=== PATIENT | female | born 1930 | race Caucasian/White ===

== ENCOUNTER 2018-05-18 16:50 | Inpatient (IN) ==
[2018-05-18 17:30] LABS: Basophils # 0.1 10*3/uL (0.0-0.2); Basophils % 0.8 % (0.0-0.8); Eosinophils # 0.2 10*3/uL (0.0-0.87); Eosinophils % 2.3 % (0.00-10.9); Hemoglobin 15.3 GM/DL (12.0-16.0); Immature Granulocytes % 0.3 %; Immature Granulocytes Absolute 0.02 #; Lymphocytes # 2.3 10*3/uL (1.4-4.0); Lymphocytes % 28.5 % (21.3-54.2); Mean Corpuscular HGB Conc 33.3 GM/DL (32-36); Mean Corpuscular Hemoglobin 30 PG (27-34); Mean Corpuscular Volume 89.1 FL (87-102); Mean Platelet Volume 9.6 FL (9.6-12.0); Monocytes # 0.9 10*3/uL (0.11-0.8); Monocytes % 11.6 % (1.7-12.7); Neutrophils # 4.5 10*3/uL (1.4-7.4); Neutrophils % 56.5 % (38.7-73.9); Platelet Count 245 T/CUMM (130-400); Red Blood Count 5.16 MC/CUMM (3.8-5.5); Red Cell Distribution Width 12.9 % (9.3-17.3); White Blood Count 7.9 T/CUMM (4-12)
[2018-05-18 17:58] LABS: Alanine Aminotransferase 20 U/L (13-56); Albumin 3.7 G/DL (3.4-5.0); Alkaline Phosphatase 167 U/L (45-117); Aspartate Amino Transferase 15 U/L (0-37); Bilirubin,Total < 0.39 MG/DL (0.2-1.0); Blood Urea Nitrogen 24 MG/DL (7-18); Calcium 9.1 MG/DL (8.5-10.1); Glucose 133 MG/DL (74-106); Potassium 4.4 MMOL/L (3.5-5.1); Sodium 136 MMOL/L (136-145); Total Protein 8.1 G/DL (6.4-8.3); Troponin I 0.015 NG/ML (0.00-0.045)
[2018-05-18 18:02] LABS: Partial Thromboplastin Time 30.1 SECS (0-40)
[2018-05-18 18:28] LABS: Apearance,Urine Slightly Hazy (Clear); Bacteria,Urine Many /HPF (Few); Bilirubin,Urine Negative (Negative); Blood, Urine Moderate mg/dL (Negative); Glucose,Urine (UA) Negative (Negative); Granular Casts,Urine 6 /LPF (0-1); Hyaline Casts,Urine 4 /LPF (0-3); Ketones,Urine 5 mg/dL (Negative); Mucus,Urine Occasional /LPF (Occasional); Nitrite,Urine Negative (Negative); Protein,Urine Negative; RBC,Urine 33 /HPF (0-4); Squamous Epithelial Cell,Urine Few /HPF (0-10); Urine Color Yellow (Yellow); Urine Specific Gravity 1.018 (1.001-1.035); Urine Urobilinogen < 2.0 EU/DL (0.2-1.0); WBC,Urine 3 /HPF (0-6)
[2018-05-18] MEDS ORDERED: DILTIAZEM 50 MG/10 ML VIAL IV STA (19:05)
[2018-05-18] MEDS ORDERED: ONDANSETRON 4 MG/2 ML VIAL IV PRN (22:38)
[2018-05-18] MEDS ORDERED: ACETAMINOPHEN 325 MG TABLET PO PRN (22:38)
[2018-05-18] MEDS ORDERED: DIPHENOXYLATE/ATROPINE 2.5-0.025 MG TABLET PO PRN (22:41)
[2018-05-18] MEDS ORDERED: guaiFENesin 200 MG/10 ML UDCUP PO PRN (22:41)
[2018-05-18] MEDS ORDERED: BISMUTH SUBSALICYLATE 30 ML/524 MG 240 ML/BOTTLE PO PRN (22:41)
[2018-05-18] MEDS ORDERED: ONDANSETRON 4 MG TABLET PO PRN (22:41)
[2018-05-18] MEDS ORDERED: MAGNESIUM HYDROXIDE SUSP 30 ML UDCUP PO PRN (22:41)
[2018-05-18] MEDS ORDERED: LOPERAMIDE 2 MG CAPSULE PO PRN (22:41)
[2018-05-19 07:32] LABS: Albumin 3.2 G/DL (3.4-5.0); Bilirubin,Total 0.7 MG/DL (0.2-1.0); Calcium 8.8 MG/DL (8.5-10.1); Potassium 4.1 MMOL/L (3.5-5.1)
[2018-05-19] MEDS: MELATONIN 3 MG TABLET PO SCH ×2 (07:48→20:50)
[2018-05-19] MEDS: COLESTIPOL 1 GM TABLET PO SCH ×2 (08:13→20:49)
[2018-05-19] MEDS: MEGESTROL 400 MG/10 ML UDCUP PO SCH (08:13)
[2018-05-19] MEDS: PANTOPRAZOLE 40 MG TABLET PO SCH ×2 (08:13→20:52)
[2018-05-19] MEDS: ALUMINUM/MAGNES/SIMETH MAX STR 30 ML UDCUP PO SCH ×3 (08:13→21:50)
[2018-05-19] MEDS: PHENYTOIN ER 100 MG CAPSULE PO SCH ×3 (08:13→20:51)
[2018-05-19] MEDS: MEMANTINE 10 MG TABLET PO SCH ×2 (08:13→20:52)
[2018-05-19] MEDS: DICYCLOMINE 10 MG CAPSULE PO SCH (08:13)
[2018-05-19] MEDS ORDERED: ENOXAPARIN 40 MG/0.4 ML SYRINGE SUBCUT SCH (09:00)
[2018-05-19] MEDS ORDERED: PANTOPRAZOLE 40 MG TABLET PO SCH (09:00)
[2018-05-19] MEDS ORDERED: ENOXAPARIN 30 MG/0.3 ML SYRINGE SUBCUT ONE (09:00)
[2018-05-19] MEDS ORDERED: METOPROLOL TARTRATE 5 MG/5 ML VIAL IV ONE ×2 (09:00→09:30)
[2018-05-19] MEDS: METOPROLOL TARTRATE 25 MG TABLET PO SCH ×2 (09:07→20:52)
[2018-05-19] MEDS: DILTIAZEM 30 MG TABLET PO SCH ×3 (14:42→20:46)
[2018-05-19] MEDS: QUEtiapine 25 MG TABLET PO SCH (20:50)
[2018-05-19] MEDS: ESCITALOPRAM 10 MG TABLET PO SCH (20:51)
[2018-05-19] MEDS: DONEPEZIL 10 MG TABLET PO SCH (20:51)
[2018-05-19] MEDS: SIMVASTATIN 20 MG TABLET PO SCH (20:51)
[2018-05-19] MEDS: SERTRALINE 50 MG TABLET PO SCH (20:52)
[2018-05-19] MEDS ORDERED: ENOXAPARIN 60 MG/0.6 ML SYRINGE SUBCUT SCH (21:00)
[2018-05-20] MEDS: METOPROLOL TARTRATE 25 MG TABLET PO SCH ×2 (08:43→20:22)
[2018-05-20] MEDS: MEMANTINE 10 MG TABLET PO SCH ×2 (08:43→20:08)
[2018-05-20] MEDS: COLESTIPOL 1 GM TABLET PO SCH ×2 (08:43→20:10)
[2018-05-20] MEDS: DILTIAZEM 30 MG TABLET PO SCH ×4 (08:44→20:10)
[2018-05-20] MEDS: DICYCLOMINE 10 MG CAPSULE PO SCH (08:44)
[2018-05-20] MEDS: MEGESTROL 400 MG/10 ML UDCUP PO SCH (08:45)
[2018-05-20] MEDS: ALUMINUM/MAGNES/SIMETH MAX STR 30 ML UDCUP PO SCH ×2 (08:45→20:12)
[2018-05-20] MEDS: ENOXAPARIN 40 MG/0.4 ML SYRINGE SUBCUT SCH (08:45)
[2018-05-20] MEDS: ASPIRIN EC 81 MG TABLET PO SCH (08:45)
[2018-05-20] MEDS: PANTOPRAZOLE 40 MG TABLET PO SCH ×2 (08:45→20:09)
[2018-05-20] MEDS: PHENYTOIN ER 100 MG CAPSULE PO SCH ×3 (08:49→20:09)
[2018-05-20] MEDS ORDERED: ACEBUTOLOL 200 MG CAPSULE PO SCH (17:15)
[2018-05-20] MEDS: MELATONIN 3 MG TABLET PO SCH (20:08)
[2018-05-20] MEDS: DONEPEZIL 10 MG TABLET PO SCH (20:08)
[2018-05-20] MEDS: ESCITALOPRAM 10 MG TABLET PO SCH (20:09)
[2018-05-20] MEDS: SIMVASTATIN 20 MG TABLET PO SCH (20:09)
[2018-05-20] MEDS: SERTRALINE 50 MG TABLET PO SCH (20:09)
[2018-05-20] MEDS: QUEtiapine 25 MG TABLET PO SCH (20:10)
[2018-05-21 07:40] VITALS: BP 112/81
[2018-05-21] MEDS: MEMANTINE 10 MG TABLET PO SCH (09:29)
[2018-05-21] MEDS: DICYCLOMINE 10 MG CAPSULE PO SCH (09:29)
[2018-05-21] MEDS: ASPIRIN EC 81 MG TABLET PO SCH (09:29)
[2018-05-21] MEDS: COLESTIPOL 1 GM TABLET PO SCH (09:29)
[2018-05-21] MEDS: PHENYTOIN ER 100 MG CAPSULE PO SCH (09:29)
[2018-05-21] MEDS: DILTIAZEM 30 MG TABLET PO SCH (09:29)
[2018-05-21] MEDS: METOPROLOL TARTRATE 25 MG TABLET PO SCH (09:29)
[2018-05-21] MEDS: PANTOPRAZOLE 40 MG TABLET PO SCH (09:29)
[2018-05-21] MEDS: ENOXAPARIN 40 MG/0.4 ML SYRINGE SUBCUT SCH (09:30)
[2018-05-21] MEDS: ALUMINUM/MAGNES/SIMETH MAX STR 30 ML UDCUP PO SCH (09:30)
[2018-05-21] MEDS: MEGESTROL 400 MG/10 ML UDCUP PO SCH (09:30)
== END 2018-05-21 12:03 | DRG 309 ==
LOC: EDUNIT# → N.ED 16:50 → SUATTDRO 22:38 → N.EDINP 22:38 → N.2E 05-19 00:15
PROVIDERS: ADMIT Internal Medicine; ATTEND Internal Medicine